=== PATIENT | male | born 1960 | race Caucasian/White ===

== ENCOUNTER 2023-11-22 16:08 | Emergency (ER) | payer SELFPAY ==
[~2023-11-22] VITALS: Ht 172.7 cm; Wt 81.6 kg
[2023-11-22 16:17] VITALS: BP_SYST 152; PULSE 83; RESP 18; TEMP 97.6; O2SAT 96
[2023-11-22] MEDS ORDERED: BACITRACIN 1 GM OINT TP ONE (16:27)
[2023-11-22] MEDS: FLUORESCEIN SODIUM 1 MG OPHTHALMIC STRIP OP ONE (17:20)
[2023-11-22] MEDS: PROPARACAINE (OPTHANINE 0.5%) 15 ML DROPS OP ONE (17:20)
[2023-11-22 18:22] VITALS: BP_SYST 138; PULSE 77; RESP 16; TEMP 98; O2SAT 97
== END 2023-11-22 18:00 | disposition home or self-care (01) ==
LOC: SED 16:08
DX: H10.213 Acute toxic conjunctivitis, bilateral (principal); F32.A Depression, unspecified
CPT/HCPCS: 99284